=== PATIENT | male | born 1970 | race Caucasian/White ===

== ENCOUNTER 2025-02-07 08:10 | Observation (INO) | payer BC, OTHER, SELFPAY ==
[2025-02-07] VITALS (38 sets, daily range): BP systolic 147–241; BP diastolic 84–136; PULSE 67–117; RESP 9–28; TEMP 36.1–36.6; O2SAT 91–96; BMI 38.6; BMI 42.0
--- NOTE | 2025-02-07 08:17 | DI.CT.S_ITS ---
PROCEDURE: CT STROKE INDICATIONS: Positive BE-FAST, Stroke symptoms TECHNIQUE: Noncontrast 4.5 mm thick angled axial sections acquired from the foramen magnum to the vertex, with coronal reformats. For radiation dose reduction, the following was used: automated exposure control, adjustment of mA and/or kV according to patient size. COMPARISON: None. FINDINGS: Image quality: Diagnostic. CSF spaces: Basal cisterns are patent. No extra-axial fluid collections. Ventricles are normal in size and shape. Brain: No midline shift. No intracranial mass effect or hemorrhage. Perez-white matter interface is normal. Skull and face: Calvarium and visualized facial bones are intact, without suspicious lesions. Sinuses: Visualized sinuses and mastoids are clear. IMPRESSION: No acute intracranial pathology. Findings discussed with Dr. Duran at 8:37 a.m. On 02/07/2025. This study fulfills neurological imaging criteria for inclusion or exclusion of acute stroke therapies based on available published neurological imaging guidelines. Dictated by: Iker Max M.D. on 02/07/2025 at 8:36 Approved by: Iker Max M.D. on 02/07/2025 at 8:37
--- NOTE | 2025-02-07 08:17 | DI.CT.S_ITS ---
PROCEDURE: CT ANGIO HEAD AND NECK INDICATIONS: r/o stroke TECHNIQUE: After the administration of intravenous contrast, 1 mm thick sections acquired from the aortic arch through the [place]. 3-dimensional hldydtv-cbwcbxcjt-lfjewrnoxn (MIP) and/or volume rendering reformats were acquired of the central intracranial vasculature and neck separately. For radiation dose reduction, the following was used: automated exposure control, adjustment of mA and/or kV according to patient size. COMPARISON: None. FINDINGS: Image quality: Diagnostic. HEAD ANGIOGRAPHY Anterior circulation: ICAs: Normal and symmetric ACAs: Normal and symmetric MCAs: Normal and symmetric AComm: No aneurysm Venous sinuses: patent Posterior circulation: Dominance: Equal Vertebral arteries: No stenosis or occlusion. No aneurysm. Basilar artery: Unremarkable PComms: No aneurysm port captain: Unremarkable NECK ANGIOGRAPHY Aortic arch and subclavian arteries: Normal flow, no aneurysm. CCAs: No stenosis, occlusion, or aneurysm. ICA origins (by NASCET criteria): No hemodynamically significant narrowing. ICAs: No stenosis, occlusion or aneurysm. ECAs: Origins are patent. Vertebral arteries: Unremarkable Soft tissues: No significant mass, aneurysm, or lymphadenopathy Lung apices: No pneumothorax Bones: No acute or suspicious abnormality. IMPRESSION: No significant intracranial arterial abnormality is seen. No significant abnormality is seen within the arteries of the neck. Any quantitative measurements of stenosis were performed using NASCET criteria. Dictated by: Iker Max M.D. on 02/07/2025 at 8:46 Approved by: Iker Max M.D. on 02/07/2025 at 8:50
--- NOTE | 2025-02-07 08:17 | DI.RAD.S_ITS ---
PROCEDURE: XR CHEST 1V INDICATIONS: Possible stroke TECHNIQUE: One view of the chest was acquired. COMPARISON: None. FINDINGS: Surgical changes and devices: None. Lungs and pleura: Lungs are clear. No pleural effusions or pneumothorax. Mediastinum: Mediastinal contours appear normal. Heart size is normal. Bones and chest wall: No suspicious bony lesions. Overlying soft tissues appear unremarkable. IMPRESSION: No acute cardiopulmonary abnormality is seen. Dictated by: Iker Max M.D. on 02/07/2025 at 8:45 Approved by: Iker Max M.D. on 02/07/2025 at 8:46
[2025-02-07 08:33] LABS: Add Manual Diff / Slide Review NO; Basophils Absolute Auto 100 /uL (0-100); Basophils Percent Auto 0.9 % (0-2); Eosinophils Absolute Auto 100 /uL (0-450); Eosinophils Percent Auto 1.1 % (2-4); Hematocrit 45.9 % (41-53); Hemoglobin 16.2 g/dL (13.5-17.5); Lymphocytes Absolute Auto 3100 /uL (1100-4500); Lymphocytes Percent Auto 31.5 % (25-40); Mean Corpuscular HGB Conc 35.2 % (30-36); Mean Corpuscular Hemoglobin 31.5 PG (26-34); Mean Corpuscular Volume 89.4 fL (80-100); Monocytes Absolute Auto 800 /uL (0-900); Monocytes Percent Auto 8.3 % (3-14); Neutrophils Absolute Auto 5700 /uL (1500-7000); Neutrophils Percent Auto 58.2 % (50-75); Platelet Count 273 X10^3/uL (150-400); Red Blood Cell Count 5.13 X10^6/uL (4.5-5.9); Red Cell Distribution Width 12.8 % (11.6-14.8); White Blood Cell Count 9.8 X10^3/uL (4.5-11.0)
[2025-02-07 08:38] LABS: INR 0.9 (0.9-1.3); Prothrombin Time 10.3 SECONDS (9.4-12.5)
[2025-02-07 08:41] LABS: PTT Partial Thromboplastin Tim 32 SECONDS (25.1-36.5)
--- NOTE | 2025-02-07 08:42 | ED.NEUROSD ---
HPI - Neuro Symptoms/Deficit General Chief Complaint: Neuro Symptoms/Deficit Stated Complaint: Numbness on left side of body Time Seen by Provider: 02/07/25 08:41 Source: patient and family Mode of arrival: Ambulatory Limitations: no limitations History of Present Illness HPI Narrative: [age] male with no reported medical issues presents with complaint of left-sided numbness tingling of the face, arm and leg started having sensations last night at dinner in the left hand woke up at 3:00 a.m. and felt the entire left side of his body was numb and tingling. Last known normal described as 1999 last night. Patient states it did progressive his arm last night he feels like there sort of lidocaine in his cheek arm and leg. He states he has a normal movements. He denies headache, denies any speech changes, denies any vision changes. Denies any weakness or difficulty with movement. Denies any chest pain or shortness of breath. No nausea or vomiting. No other GI or urinary symptoms denies any issues with bowel movements or urination. States he was not had similar symptoms in the past. Has not seen primary care for at least 6 or 7 years, does not take any daily medications or have any known medical issues. Denies prior surgeries. Denies any drug allergies. No tobacco, states he will have have 6 alcoholic drinks about 4-5 times weekly. States he was never had withdrawal symptoms. Denies any recreational drugs. Does not currently have a primary care physician. On Anticoagulants: No Related Data Allergies Allergy/AdvReac Type Severity Reaction Status Date / Time No Known Drug Allergies Allergy Verified 02/07/25 10:05 Review of Systems Review of Systems ROS Unobtainable: All systems reviewed & are unremarkable except as noted in HPI and below Hematologic/Lymphatic On Anticoagulants: No Patient History Social History Smoking Status: Former smoker Smoking Status: Former smoker Exam Narrative Exam Narrative: GEN: Obese male, alert and oriented x 3, patient appears to be in mild distress. HEENT: Atraumatic, pupils are equal round reactive to light, extraocular movements are intact, nares are clear, TMs are clear with no fluid, there is no conjunctival pallor. Throat is clear without any exudates, erythema, tonsillar enlargement or uvular deviation, slight mild left facial droop although patient's at bedside state that appears to be his normal HEART: Regular rate and rhythm without murmur, clicks, rubs. No carotid bruits, pulses are equal in upper and lower extremities LUNGS:Lungs clear to auscultation, no wheezes, rales, crackles, chest moves symmetrically ABD:bowel sounds normal, soft, non-tender, no guarding, rebound, rigidity, no masses noted, no hepatosplenomegaly :No CVA tenderness MSCL: Non-tender, no muscle atrophy, muscles strength 5/5 upper and lower extremities, full range of motion, normal gait NEURO:CN 2-12 intact, sensation decreased to light touch on the left face arm and leg, finger nose finger test normal, heel garcia test normal. Initial Vital Signs Initial Vital Signs: Vital Signs Temperature 97.6 F 02/07/25 08:18 Pulse Rate 116 H 02/07/25 08:18 Respiratory Rate 20 02/07/25 08:18 Blood Pressure 220/136 H 02/07/25 08:18 Pulse Oximetry 96 02/07/25 08:18 Oxygen Delivery Method Room Air 02/07/25 08:18 Scores NIH Stroke Scale Level of Conciousness: Alert, keenly responsive Ask month/age: Answers both questions correctly. Open/close eyes, close hand: Performs both tasks correctly Best gaze horizontal: Normal Visual darden: No visual loss Facial palsy: Minor paralysis, flattened nasolabial fold, asymmetry on smiling Left arm drift: No drift for full 10 sec Right arm drift: No drift for full 10 sec Left leg drift: No drift for full 5 sec Right leg drift: No drift for full 5 sec Limb ataxia: Absent Sensory on face/arms/legs: Mild to moderate sensory loss, can tell touch Best language: No aphasia, normal Dysarthria: Normal Extinction or inattention: No abnormality Total NIH Stroke scale score: 2 Course Orders Ordered: ED Orders 02/07/25 08:15 Complete Blood Count AUTO DIFF Stat Comprehensive Metabolic Panel Stat PTT Partial Thromboplastin Tung Stat Prothrombin Time INR Stat Troponin & CK Cardiac Panel Stat 02/07/25 08:[address] angio head and neck Stat XR chest 1V Stat Urine Drug Screen, Rapid Stat EKG-12 Lead Stat Labetalol HCl (Labetalol 20 Mg/4 Ml Syringe) 10 mg IV Q10M PRN PRN Reason: Systolic blood pressure greater than 200 Last Admin: 02/07/25 10:05 Dose: 10 mg Ondansetron HCl (Ondansetron 4 Mg/2 Ml Inj) 4 mg IV NOW PRN PRN Reason: Nausea And Vomiting Discontinued Medications Aspirin (Aspirin 81 Mg Chew Tab) 324 mg PO NOW ONE Stop: 02/07/25 09:02 Last Admin: 02/07/25 09:07 Dose: 324 mg Labetalol HCl (Labetalol 20 Mg/4 Ml Syringe) 10 mg IV NOW ONE Stop: 02/07/25 09:02 Last Admin: 02/07/25 09:06 Dose: 10 mg Ondansetron HCl (Ondansetron 4 Mg Odt) 4 mg PO NOW PRN PRN Reason: Nausea And Vomiting Vital Signs Vital signs: Vital Signs - 8 hr 02/07/25 08:18 02/07/25 08:19 02/07/25 08:42 Temperature 97.6 F Pulse Rate 116 H 117 H Respiratory Rate 20 19 Blood Pressure 220/136 H Pulse Oximetry 96 96 95 Oxygen Delivery Method Room Air 02/07/25 08:43 02/07/25 08:43 02/07/25 08:50 Temperature Pulse Rate 104 H 103 H Respiratory Rate 22 24 Blood Pressure 234/120 H Pulse Oximetry 95 95 Oxygen Delivery Method 02/07/25 08:50 02/07/25 09:00 02/07/25 09:03 Temperature Pulse Rate 109 H 104 H Respiratory Rate 28 H 24 Blood Pressure 241/112 H Pulse Oximetry 95 92 Oxygen Delivery Method 02/07/25 09:03 02/07/25 09:06 02/07/25 09:12 Temperature Pulse Rate 102 H 90 Respiratory Rate 28 H Blood Pressure 201/116 H 201/116 H Pulse Oximetry 91 Oxygen Delivery Method 02/07/25 09:12 02/07/25 09:15 02/07/25 09:15 Temperature Pulse Rate 81 Respiratory Rate 20 Blood Pressure 196/106 H 191/110 H Pulse Oximetry 96 Oxygen Delivery Method MDM - Neuro Symptoms/Deficit Lab Data 02/07/25 08:15 02/07/25 08:15 Labs: Lab Results 02/07/25 Range/Units 08:15 WBC 9.8 (4.5-11.0) X10^3/uL RBC 5.13 (4.5-5.9) X10^6/uL Hgb 16.2 (13.5-17.5) g/dL Hct 45.9 (41-53) % MCV 89.4 (80-100) fL MCH 31.5 (26-34) PG MCHC 35.2 (30-36) % RDW 12.8 (11.6-14.8) % Plt Count 273 (150-400) X10^3/uL Neut % (Auto) 58.2 (50-75) % Lymph % (Auto) 31.5 (25-40) % [place] % (Auto) 8.3 (3-14) % Eos % (Auto) 1.1 L (2-4) % Baso % (Auto) 0.9 (0-2) % Neut # (Auto) 5700 (0075-5554) /uL Lymph # (Auto) 3100 (6884-8270) /uL [place] # (Auto) 800 (0-900) /uL Eos # (Auto) 100 (0-450) /uL Baso # (Auto) 100 (0-100) /uL PT 10.3 (9.4-12.5) SECONDS INR 0.9 (0.9-1.3) APTT 32 (25.1-36.5) SECONDS Sodium 137 (137-145) mmol/L Potassium 4.2 (3.4-5.1) mmol/L Chloride 104 (98-107) mmol/L Carbon Dioxide 23 (22-32) mmol/L BUN 19 (9-20) mg/dL Creatinine 1.00 (0.66-1.25) mg/dL Estimated GFR > 60 (>60) mL/min BUN/Creatinine Ratio 19.0 (6-22) Glucose 144 H (70-99) mg/dL Calcium 9.5 (8.4-10.2) mg/dL Total Bilirubin 0.9 (0.2-1.3) mg/dL AST 52 (17-59) IU/L ALT 66 H (<50) IU/L Alkaline Phosphatase 55 (38-126) U/L Total Creatine Kinase 243 H (55-170) U/L Troponin I < 0.012 (0.01-0.034) ng/mL Total Protein 7.7 (6.3-8.2) g/dL Albumin 4.7 (3.5-5.0) g/dL Globulin 3.0 (1.7-4.1) g/dL Albumin/Globulin Ratio 1.6 (1.0-2.8) Point of Care Testing Glucose POC 137 ECG Data Attestation: I personally reviewed and interpreted this ECG as follows: Prior ECG tracings: not available for review Interpretation: Sinus rhythm rate of 96 ND 148 QRS of 92 QTC 449, no acute ST elevation depression noted. No priors for comparison. MDM Narrative Medical decision making narrative: Labs show normal white count hemoglobin and platelets, coags are negative, electrolytes, BUN creatinine are appropriate glucose has been 44 ALT 66, AST alk-phos her normal, total CK is 243. Troponin is less than 0.012 EKG shows sinus rhythm no acute ST changes no priors for comparison. Non-con head CT stroke shows no acute intracranial pathology Chest x-ray shows no acute change CTA head and neck shows no significant intracranial abnormality or significant abnormality the arteries in the neck. Patient was quite hypertensive was given labetalol she was quite hypertensive even on rechecked. Patient also received aspirin 324 mg chewable. 55-year-old male no reported medical history but has not seen a physician in 6 or 7 years arrives quite hypertensive with left-sided paresthesias of the face, upper extremity and lower extremity NIH is 1-2. Patient does have a bit of droop at the nasolabial fold but patient and family states that is normal otherwise his NIH is 1 for sensation changes. Reviewed findings with the patient and family. Hospitalist paged at 9:13 a.m. Spoke with hospitalist Dr. Hampton at who accepts for admission for hypertensive emergency. Rechecked blood pressure after labetalol is in the 190s over 1 teens we will continue to monitor and give medications as needed. Stroke Core Measures Exclusion Criteria TPA in CVA: Symptom Onset >3 or 4.5 Hours Discharge Plan Departure Patient Disposition: Admitted as Observation Clinical Impression: Hypertensive emergency Admit Date/Time: 02/07/25 09:22 Admit Provider: Charles Hampton
[2025-02-07 08:44] LABS: Alanine Aminotransferase 66 IU/L (<50); Albumin 4.7 g/dL (3.5-5.0); Albumin Globulin Ratio 1.6 (1.0-2.8); Alkaline Phosphatase 55 U/L (38-126); Aspartate Aminotransferase 52 IU/L (17-59); Bilirubin Total 0.9 mg/dL (0.2-1.3); Blood Urea Nitrogen 19 mg/dL (9-20); Calcium 9.5 mg/dL (8.4-10.2); Carbon Dioxide 23 mmol/L (22-32); Chloride 104 mmol/L (98-107); Creatine Kinase 243 U/L (55-170); Estimated Glomerular Filt Rate > 60 mL/min (>60); Glucose 144 mg/dL (70-99); HEMOLYSIS < 15 (0-50); Potassium 4.2 mmol/L (3.4-5.1); Sodium 137 mmol/L (137-145); Total Protein 7.7 g/dL (6.3-8.2)
--- NOTE | 2025-02-07 08:49 | EKG_ITS ---
[address] [address] [address] [address] Test Date: 2025-02-07 Pat Name: Hudson Cash Department: Room: Gender: Male Motion Designer: MEME : 1970 Requested By: Order Number: [id number] Reading MD: Alberto Cifuentes MD Measurements Intervals [place] Rate: 96 P: 31 VT: 148 QRS: 70 QRSD: 92 T: 14 QT: 356 QTc: 449 Interpretive Statements Normal sinus rhythm Electronically Signed On 02-07-2025 8:53:32 PDT by Alberto Cifuentes MD
--- NOTE | 2025-02-07 08:51 | PC.NURSE ---
Pt hypertensive. Dr Duran notified.
[2025-02-07 08:55] LABS: Troponin I < 0.012 ng/mL (0.01-0.034)
[2025-02-07] MEDS: LABETALOL 20 MG/4 ML SYRINGE 10 MG IV ×3 (09:06→10:05)
[2025-02-07] MEDS: ASPIRIN 81 MG CHEW TAB 324 MG PO (09:07)
--- NOTE | 2025-02-07 09:22 | PC.NURSE ---
Pt arrived to dept with left-sided facial, arm & leg numbness. States that he started to feel some left hand and arm numbness after dinner at about 2000 yesterday. Woke up this morning at 0300 with numbness in left side of face, arm & leg. Unequal sensation on left side of face and left side of face slightly drooped. Pt hypertensive with bp 200s/100s. A&Ox4.
--- NOTE | 2025-02-07 09:44 | PC.NURSE ---
Pt states that left side is still numb and tingling.
--- NOTE | 2025-02-07 11:05 | DI.ECHO.S_ITS ---
[facility] +---------+ [facility] : : [address] : : [place] : : [id number] : : Phone: [phone] Echocardiogram Report + + :Name: MEGAN BLANCO Study Date: 02/07/2025 Height: 72 in : :Hospital ReadingLocation: Weight: 285 lb : : Gender: Male BSA: 2.5 m2 : :: 1970 Age: 55 yrs BP: 171/99 mmHg: :Reason For Study: STROKE, CHEST PAIN : :Ordering Physician: NORA, : :WILLAM Performed By: Shreya Buchanan : :Referring: WILLAM MELENDEZ : + + Interpretation Summary Normal biventricular size and systolic function. LVEF is 55 to 60% Normal atrial sizes. No more than mild valvular pathology is noted No [id number] shunt noted Other findings as below. No previous echo images are available for comparison. Procedure: A two-dimensional transthoracic echocardiogram with color flow and Doppler was performed. The study quality was technically difficult. There is no prior echocardiogram noted for this patient. A saline contrast injection was performed to assess for cardiac shunting. The patient was in sinus rhythm with heart rates between 72-85 bpm during the exam. Left Ventricle: The left ventricle is normal in size. Left ventricular wall thickness is mildly increased. The ejection fraction is estimated to be 55- 60%. Left ventricular systolic function is normal. Left ventricular wall motion is normal. Right Ventricle: The right ventricle is normal in size, thickness and function. The right ventricular systolic function is normal. Atria: The left atrial size is normal. The right atrium is normal in size. There is no Doppler evidence for an interatrial shunt. Injection of contrast documented no interatrial shunt. Mitral Valve: The mitral valve leaflets appear to open well. There is mild mitral regurgitation. Aortic Valve: The aortic valve is trileaflet. The aortic valve opens well. There is no aortic valve stenosis. No aortic regurgitation is present. Tricuspid Valve: The tricuspid valve leaflets are thin and pliable. No tricuspid regurgitation. Pulmonary artery pressures cannot be estimated because of the lack of a measurable TR jet velocity. Pulmonic Valve: The pulmonic valve is not well visualized. There is no pulmonic valvular regurgitation. Great Vessels: The aortic root is normal size. The dimensions of the ascending aorta are normal. The inferior vena cava was not visualized. Pericardium/ Pleura There is no pericardial effusion. There is no pleural effusion. MMode/2D Measurements & Calculations LVIDd: 5.2 cm LVOT diam: 2.3 cm LVIDs: 3.3 cm Ao root diam: 3.7 cm FS: 36.8 % asc Aorta Diam: 3.8 cm IVSd: 1.4 cm Ao Arch Diam (Prox Trans): 3.9 cm LVPWd: 1.0 cm LV breaux. diameter/BSA (cm/m^2): 2.1 LV sys. diameter/BSA (cm/m^2): 1.3 LA A2 area: 24.7 cm2 RA long axis: 6.2 cm LA A4 area: 25.0 cm2 RA area: 18.5 cm2 LA length (vol): 6.4 cm RA vol: 47.3 ml LA vol: 81.9 ml RA : 19.1 ml/m2 LA vol index: 33.1 ml/m2 RVD1 (basal): 4.4 cm TAPSE: 2.2 cm Doppler Measurements & Calculations Ao V2 max: 140.6 cm/sec LVOT Max Arley: 108.6 cm/sec Ao V2 mean: 96.2 cm/sec LV V1 max P.7 mmHg Ao max P.9 mmHg LV V1 VTI: 22.9 cm Ao mean P.2 mmHg ESTEFANIA(I,D): 3.7 cm2 Ao V2 VTI: 26.0 cm ESTEFANIA(V,D): 3.3 cm2 sev ratio: 0.88 ESTEFANIA indexed to BSA (cm^2/m^2): 1.5 MV E max arley: 62.6 cm/sec PA V2 max: 109.5 cm/sec MV A max arley: 87.1 cm/sec PA V2 mean: 67.3 cm/sec MV E/A: 0.72 PA mean P.2 mmHg Med Peak E' Arley: 7.2 cm/sec PA pr(Accel): 4.5 mmHg E/E' med: 8.7 Lat Peak E' Arley: 10.5 cm/sec E/E' lat: 6.0 E/e' average: 7.3 MV dec time: 0.26 sec SVLVOT): 96.3 ml Reading Physician:04:14 PM
[2025-02-07] MEDS: chlordiazePOXIDE 25 MG CAPSULE PO ×2 (14:43→22:03)
--- NOTE | 2025-02-07 14:51 | PM.HP.1 ---
History of Present Illness History of Present Illness Date Patient Seen: 02/07/25 Chief complaint: Numbness on left side of body Narrative: Chief complaint: Stroke-like symptoms with numbness of left face upper extremity torso and left lower extremity History of present illness: [age] male with no reported medical issues presents with complaint of left-sided numbness tingling of the face, arm and leg started having sensations last night at dinner in the left hand woke up at 3:00 a.m. and felt the entire left side of his body was numb and tingling. Last known normal described as 1999 last night. Patient states it did progressive his arm last night he feels like there sort of lidocaine in his cheek arm and leg. He states he has a normal movements. He denies headache, denies any speech changes, denies any vision changes. Denies any weakness or difficulty with movement. Denies any chest pain or shortness of breath. No nausea or vomiting. No other GI or urinary symptoms denies any issues with bowel movements or urination. States he was not had similar symptoms in the past. Has not seen primary care for at least 6 or 7 years, does not take any daily medications or have any known medical issues. Denies prior surgeries. Denies any drug allergies. No tobacco, states he will have have 6 alcoholic drinks about 4-5 times weekly. States he was never had withdrawal symptoms. Denies any recreational drugs. Does not currently have a primary care physician. Emergency room course: Initial blood pressure 241/112 given intravenous labetalol reduced to 196/106 CBC and CMP is unremarkable CK is 243 troponin below reference measurable EKG sinus tachycardia no ST segments or T changes Patient excluded for tPA based on hypertension and onset of symptoms starting last night CTA of head and neck unremarkable CT of the head: No acute intracranial pathology Review of systems: No weight loss weight gain fevers chills No sinus congestion difficulty swallowing No chest pains palpitations No cough shortness for breath No nausea vomiting diarrhea constipation No urinary symptoms Physical exam: Well-developed male no acute distress ambulatory live and oriented HEENT unremarkable Neck no carotid bruits Heart rate and rhythm regular no murmurs Lungs clear to auscultation Abdomen nontender Extremities no edema Neurologic alert and oriented Cranial nerves intact 5/5 strength upper and lower extremities Normal Subjective impaired sensation of left face head upper extremity torso and lower extremity Assessment and plan: Stroke-like symptoms high suspicion of right-sided basal ganglia infarct with deficits left side sensory only -permissive hypertension goal blood pressure 180 -aspirin high-dose statin -Librium 25 mg t.i.d. prophylaxis for withdrawal -MRI of the brain -pharmacologic DVT prophylaxis contraindicated due to severe hypertension Full Code Blue: Greater than 55 minutes of time were required in management this patient 50% of the time was in the presence of the patient [facility] Social History Smoking Status: Former smoker Meds Home Medications and Allergies Home Medications Medication Instructions Recorded Confirmed Type No Known Home Medications 02/07/25 02/07/25 History Allergies Allergy/AdvReac Type Severity Reaction Status Date / Time No Known Drug Allergies Allergy Verified 02/07/25 10:05 Exam Vital Signs (past 8 hours): - 02/07/25 08:18 02/07/25 08:19 02/07/25 08:42 Temperature 97.6 F Pulse Rate 116 H 117 H Respiratory Rate 20 19 Blood Pressure 220/136 H Pulse Oximetry 96 96 95 Oxygen Delivery Method Room Air 02/07/25 08:43 02/07/25 08:43 02/07/25 08:50 Temperature Pulse Rate 104 H 103 H Respiratory Rate 22 24 Blood Pressure 234/120 H Pulse Oximetry 95 95 Oxygen Delivery Method 02/07/25 08:50 02/07/25 09:00 02/07/25 09:03 Temperature Pulse Rate 109 H 104 H Respiratory Rate 28 H 24 Blood Pressure 241/112 H Pulse Oximetry 95 92 Oxygen Delivery Method 02/07/25 09:03 02/07/25 09:06 02/07/25 09:12 Temperature Pulse Rate 102 H 90 Respiratory Rate 28 H Blood Pressure 201/116 H 201/116 H Pulse Oximetry 91 Oxygen Delivery Method 02/07/25 09:12 02/07/25 09:15 02/07/25 09:15 Temperature Pulse Rate 81 Respiratory Rate 20 Blood Pressure 196/106 H 191/110 H Pulse Oximetry 96 Oxygen Delivery Method 02/07/25 09:30 02/07/25 09:30 02/07/25 09:31 Temperature Pulse Rate 88 86 Respiratory Rate 26 H 17 Blood Pressure Pulse Oximetry 93 96 Oxygen Delivery Method Room Air 02/07/25 09:31 02/07/25 09:39 02/07/25 09:43 Temperature Pulse Rate 81 Respiratory Rate 17 Blood Pressure 221/121 H 221/121 H Pulse Oximetry 94 Oxygen Delivery Method 02/07/25 09:43 02/07/25 09:45 02/07/25 09:46 Temperature Pulse Rate Respiratory Rate Blood Pressure 187/106 H 221/121 H 191/114 H Pulse Oximetry Oxygen Delivery Method 02/07/25 09:46 02/07/25 10:00 02/07/25 10:03 Temperature Pulse Rate 79 79 80 Respiratory Rate 18 13 15 Blood Pressure Pulse Oximetry 95 92 92 Oxygen Delivery Method 02/07/25 10:03 02/07/25 10:05 02/07/25 10:10 Temperature Pulse Rate Respiratory Rate Blood Pressure 181/104 H 181/104 H 181/104 H Pulse Oximetry Oxygen Delivery Method 02/07/25 10:15 02/07/25 10:15 02/07/25 10:30 Temperature Pulse Rate 76 79 Respiratory Rate 10 L 9 L Blood Pressure 189/109 H 176/107 H Pulse Oximetry 94 93 Oxygen Delivery Method 02/07/25 10:30 02/07/25 10:38 02/07/25 10:46 Temperature Pulse Rate 79 Respiratory Rate 14 Blood Pressure 176/107 H 176/107 H Pulse Oximetry 95 Oxygen Delivery Method 02/07/25 10:46 02/07/25 11:00 02/07/25 11:02 Temperature Pulse Rate 77 79 Respiratory Rate 10 L 20 Blood Pressure 183/93 H 173/100 H Pulse Oximetry 94 96 Oxygen Delivery Method 02/07/25 12:02 02/07/25 13:00 02/07/25 14:00 Temperature Pulse Rate 82 79 79 Respiratory Rate 18 22 20 Blood Pressure 173/100 H 171/99 H 162/101 H Pulse Oximetry 96 94 95 Oxygen Delivery Method Oxygen Delivery Method Room Air Objective Labs 02/07/25 08:15 02/07/25 08:15 Labs: Laboratory Results - last 24 hr 02/07/25 08:15 WBC 9.8 RBC 5.13 Hgb 16.2 Hct 45.9 MCV 89.4 MCH 31.5 MCHC 35.2 RDW 12.8 Plt Count 273 Neut % (Auto) 58.2 Lymph % (Auto) 31.5 [place] % (Auto) 8.3 Eos % (Auto) 1.1 L Baso % (Auto) 0.9 Neut # (Auto) 5700 Lymph # (Auto) 3100 [place] # (Auto) 800 Eos # (Auto) 100 Baso # (Auto) 100 PT 10.3 INR 0.9 APTT 32 Sodium 137 Potassium 4.2 Chloride 104 Carbon Dioxide 23 BUN 19 Creatinine 1.00 Estimated GFR > 60 BUN/Creatinine Ratio 19.0 Glucose 144 H Calcium 9.5 Total Bilirubin 0.9 AST 52 ALT 66 H Alkaline Phosphatase 55 Total Creatine Kinase 243 H Troponin I < 0.012 Total Protein 7.7 Albumin 4.7 Globulin 3.0 Albumin/Globulin Ratio 1.6 Assessment & Plan Time-Based Coding :: [TOTAL MINUTES] spent with patient and on the chart (including review of chart, obtaining history, exam, reviewing outside data, placing orders, documenting exam and treatment plan, and counseling patient) on [DATE]. Quality MIPS - Admit I confirm the patient?s Advance Care Plan is present, Code status is documented, Surrogate decision maker is in patient?s record [If Yes, STOP here]: Yes MIPS - Meds 'Current medications' to include all prescriptions, [id number] products, herbals, cannabis/cannabidiol products, and vitamin/mineral/dietary (nutritional) supplements. I have utilized all available resources to obtain, update, or review the patient?s current medications. [If Yes, STOP here]: Yes
[2025-02-07 18:19] LABS: Appearance Urine UA CLEAR; Bilirubin Urine UA NEGATIVE (NEGATIVE); Color Urine UA YELLOW; Glucose Urine UA NEGATIVE (Negative); Ketones Urine UA NEGATIVE (NEGATIVE); Leukocyte Esterase Urine UA NEGATIVE (NEGATIVE); Nitrite Urine UA NEGATIVE (Negative); Occult Blood Urine UA NEGATIVE (Negative); Protein Urine UA NEGATIVE (Negative)
[2025-02-07 18:21] LABS: UR Morphine/Opiate cutoff 300 Negative (Negative); Ur Creatinine Normal (Normal); Ur Specific Gravity Normal (Normal); Urine Amphetamines Negative (Negative); Urine Barbiturates Negative (Negative); Urine Benzodiazepines Negative (Negative); Urine Cocaine Negative (Negative); Urine MDMA Negative (Negative); Urine Methadone Negative (Negative); Urine Methamphetamines Negative (Negative); Urine Oxycodone Negative (Negative); Urine Phencyclidine Negative (Negative); Urine Tetrahydrocannabinol Negative (Negative); Urine Tricyclic Antidepressant Negative (Negative); Urine pH Normal (Normal)
[2025-02-07 18:31] LABS: Bacteria Urine None Seen; Culture Indicated Urine Cult Not Indicated; RBC Urine None Seen (0-5/HPF); Squamous Epithelial Cell Urine None Seen (0-5/HPF); Urine Volume 10mL (spun); WBC Urine None Seen (0-5/HPF)
[2025-02-07 21:29] LABS: MRSA (Nasal) PCR NOT DETECTED (Not Detect)
[2025-02-07] MEDS: SODIUM CHLORIDE 0.9% FLUSH 10 ML IV (22:03)
[2025-02-08] VITALS (17 sets, daily range): BP systolic 158–196; BP diastolic 86–126; PULSE 60–90; RESP 12–24; O2SAT 93–98
--- NOTE | 2025-02-08 06:05 | PC.NURSE ---
Filter Tip Inspector Note-Patient is A/Ox4. NIH=1 done Q4h. Continues to have mild nunbness to LUE and LLE, states numbness to Lt side of face has decreased. BP remains elevated 180s/90-105. Denies chest pain, dyspnea, headache, or nausea. He does have apnea sometimes >5-6 seconds desatting to 80%, place 2L NC while asleep.
[2025-02-08] MEDS: chlordiazePOXIDE 25 MG CAPSULE PO (06:13)
[2025-02-08] MEDS: SODIUM CHLORIDE 0.9% FLUSH 10 ML IV ×2 (09:00→21:46)
--- NOTE | 2025-02-08 10:52 | DI.MRI.S_ITS ---
PROCEDURE: MR HEAD/BRAIN WO CON INDICATIONS: cva TECHNIQUE: Noncontrast axial T1 spin echo, axial T2 fast spin echo, sagittal and axial FLAIR, coronal T2 fast spin echo, axial gradient echo, axial diffusion and ADC through the brain. COMPARISON: [facility], CT, CT STROKE, 02/07/2025, 8:28. [facility], CT, CT ANGIO HEAD AND NECK, 02/07/2025, 8:28. FINDINGS: Image quality: Excellent. CSF Spaces: Basal cisterns are patent. No extra-axial fluid collections. Ventricles are normal in size and shape. Brain: There is an 8 mm focus of abnormal diffusion-weighted signal within the right thalamus. Associated dark signal can be seen on the ADC map at this site. Mild associated developing T2 weighted signal can be seen. No intracranial masses or hemorrhage. Perez/white matter interface is normal. Brainstem appears normal. No chronic ischemic insults. Normal intravascular flow voids are present. Skull and face: Calvarium has normal marrow signal. Orbits appear normal. Sinuses: Sinuses and mastoids are clear. IMPRESSION: Subacute infarction seen involving the right thalamus. Dictated by: Tyree Belle M.D. on 02/08/2025 at 11:37 Approved by: Tyree Belle M.D. on 02/08/2025 at 11:39
[2025-02-08] MEDS: AMLODIPINE 5 MG TABLET PO (13:33)
[2025-02-08 14:21] LABS: Add Manual Diff / Slide Review NO; Basophils Absolute Auto 100 /uL (0-100); Basophils Percent Auto 0.9 % (0-2); Eosinophils Absolute Auto 100 /uL (0-450); Eosinophils Percent Auto 1.7 % (2-4); Hematocrit 42.6 % (41-53); Hemoglobin 14.9 g/dL (13.5-17.5); Lymphocytes Absolute Auto 1800 /uL (1100-4500); Lymphocytes Percent Auto 22.8 % (25-40); Mean Corpuscular Hemoglobin 31.4 PG (26-34); Mean Corpuscular Volume 89.5 fL (80-100); Monocytes Absolute Auto 500 /uL (0-900); Monocytes Percent Auto 6.7 % (3-14); Neutrophils Absolute Auto 5500 /uL (1500-7000); Neutrophils Percent Auto 67.9 % (50-75); Platelet Count 229 X10^3/uL (150-400); Red Blood Cell Count 4.76 X10^6/uL (4.5-5.9); Red Cell Distribution Width 13.1 % (11.6-14.8); White Blood Cell Count 8.1 X10^3/uL (4.5-11.0)
--- NOTE | 2025-02-08 15:33 | CM.DANOTE ---
DCP Assessment Note: Pt is a 55yo male, resident of [place], is admitted for hypertensive emergency. Pt lives in a house with his children and ex-. Patient does not currently have a PCP and agreed to establishing with a [facility] Provider and insurance is [employer] and [facility] [employer]. Reviewed chart and discussed with multidisciplinary team pt's medical status and initial discharge needs. DCP met w/patient at bedside; introduced self and role. Patient was found in bed, alert and oriented, cooperative with assessment. Pt confirmed living situation and good support in family. Pt expressed preference in discharge home as soon as possible. Pt has no history with home health or SNF, confirmed he does not feel referral is needed at this time. Plan: Anticipating dc home on 02/08 or upon medical clearance, will need PCP establishment and follow up. CM team will follow closely for coordination of discharge plans. ZAID Copeland Discharge Planning/Care Management CM Discharge Assessment Start: 02/07/25 09:30 Freq: Status: Active Protocol: Document 02/08/25 15:26 MW (Rec: 02/08/25 15:33 MW [id number]) Discharge Planning Assessment Assigned [employer] Packer JUAN Wagner DPOA/Assigned Designee Name Dahlia, Ex- Contact Information [phone] Advance Directives? No History Provided By Patient,Medical Record Has Patient been admitted in last 30 No days? Prior Living Arrangements House Household Members spouse Type of transporation used prior to Drives own vehicle admit Independent with ADL's Yes Is patient alert and oriented? Yes Caregiver for Another No Discharge Plan Home Whiteboard Updated in Patient Room with Yes name and ext. # of [employer] Inspector [employer] Packer Review Status In Process Please Provide Date Initial DC 02/08/25 Assessment Was Performed Next Review Type Continued Stay Review
[2025-02-08] MEDS: cloNIDine 0.1 MG TABLET PO ×2 (16:10→21:43)
--- NOTE | 2025-02-08 16:43 | P.PN_ITS ---
Subjective Subjective Date Patient Seen: 02/08/25 Interval history: Chief complaint: Stroke-like symptoms with numbness of left face upper extremity torso and left lower extremity History of present illness: [age] male with no reported medical issues presents with complaint of left-sided numbness tingling of the face, arm and leg started having sensations last night at dinner in the left hand woke up at 3:00 a.m. and felt the entire left side of his body was numb and tingling. Last known normal described as 1999 last night. Patient states it did progressive his arm last night he feels like there sort of lidocaine in his cheek arm and leg. He states he has a normal movements. He denies headache, denies any speech changes, denies any vision changes. Denies any weakness or difficulty with movement. Denies any chest pain or shortness of breath. No nausea or vomiting. No other GI or urinary symptoms denies any issues with bowel movements or urination. States he was not had similar symptoms in the past. Has not seen primary care for at least 6 or 7 years, does not take any daily medications or have any known medical issues. Denies prior surgeries. Denies any drug allergies. No tobacco, states he will have have 6 alcoholic drinks about 4-5 times weekly. States he was never had withdrawal symptoms. Denies any recreational drugs. Does not currently have a primary care physician. Emergency room course: Initial blood pressure 241/112 given intravenous labetalol reduced to 196/106 CBC and CMP is unremarkable CK is 243 troponin below reference measurable EKG sinus tachycardia no ST segments or T changes Patient excluded for tPA based on hypertension and onset of symptoms starting last night CTA of head and neck unremarkable CT of the head: No acute intracranial pathology Hospital course: 02/08:. No further symptoms still as the paresthesia of the left side of his body head and extremities MRI demonstrates a right thalamic subacute infarct: Review of systems: No weight loss weight gain fevers chills No sinus congestion difficulty swallowing No chest pains palpitations No cough shortness for breath No nausea vomiting diarrhea constipation No urinary symptoms Physical exam: Well-developed male no acute distress ambulatory live and oriented HEENT unremarkable Neck no carotid bruits Heart rate and rhythm regular no murmurs Lungs clear to auscultation Abdomen nontender Extremities no edema Neurologic alert and oriented Cranial nerves intact 5/5 strength upper and lower extremities Normal Subjective impaired sensation of left face head upper extremity torso and lower extremity Assessment and plan: Subacute thalamic right-sided basal ganglia infarct with deficits left side sensory only -permissive hypertension goal blood pressure 150 -aspirin high-dose statin -Librium 25 mg t.i.d. prophylaxis for withdrawal -pharmacologic DVT prophylaxis contraindicated due to severe hypertension Full Code Blue: Greater than 35 minutes of time were required in management this patient 50% of the time was in the presence of the patient Exam Vital Signs (past 8 hours): - 02/08/25 09:00 02/08/25 10:44 02/08/25 11:41 Pulse Rate 81 79 85 Respiratory Rate 16 16 16 Blood Pressure 188/110 H 183/95 H 159/101 H Pulse Oximetry 95 95 95 Oxygen Flow Rate 0 0 02/08/25 12:36 02/08/25 13:49 02/08/25 14:00 Pulse Rate 86 80 86 Respiratory Rate 16 17 24 Blood Pressure 196/104 H 193/126 H 178/102 H Pulse Oximetry 97 93 94 Oxygen Flow Rate 0 0 02/08/25 15:26 02/08/25 16:00 Pulse Rate 81 79 Respiratory Rate 20 17 Blood Pressure 191/96 H 176/106 H Pulse Oximetry 95 96 Oxygen Flow Rate 0 Oxygen Delivery Method Room Air Oxygen Flow Rate 0 Objective Labs 02/08/25 14:10 02/07/25 08:15 Labs: Laboratory Results - last 24 hr 02/07/25 02/07/25 02/07/25 16:14 16:14 20:00 WBC RBC Hgb Hct MCV MCH MCHC RDW Plt Count Neut % (Auto) Lymph % (Auto) [place] % (Auto) Eos % (Auto) Baso % (Auto) Neut # (Auto) Lymph # (Auto) [place] # (Auto) Eos # (Auto) Baso # (Auto) Urine Color Yellow Urine Appearance Clear Urine pH 6.0 Normal Ur Specific [place] 1.020 Urine Protein Negative Urine Glucose (UA) Negative Urine Ketones Negative Urine Occult Blood Negative Urine Nitrate Negative Urine Bilirubin Negative Urine Urobilinogen 1.0 Ur Leukocyte Esterase Negative Urine RBC None seen Urine WBC None seen Ur Squamous Epith Cells None seen Urine Bacteria None seen Ur Culture Indicated? Cult not indicated Vol Urine Centrifuged 10ml (spun) Nasal Screen MRSA (PCR) Not detected U Opiates 300ng/mL cut Negative Ur Oxycodone Screen Negative Urine Methadone Screen Negative Ur Barbiturates Screen Negative U Tricyclic Antidepress Negative Ur Phencyclidine Scrn Negative Ur Amphetamines Screen Negative U Methamphetamines Scrn Negative Ur MDMA Scrn (Ecstasy) Negative U Benzodiazepines Scrn Negative Urine Cocaine Screen Negative U Marijuana (THC) Screen Negative Urine Specific [place] Normal Ur Creatinine Normal 02/08/25 14:10 WBC 8.1 RBC 4.76 Hgb 14.9 Hct 42.6 MCV 89.5 MCH 31.4 MCHC 35.0 RDW 13.1 Plt Count 229 Neut % (Auto) 67.9 Lymph % (Auto) 22.8 L [place] % (Auto) 6.7 Eos % (Auto) 1.7 L Baso % (Auto) 0.9 Neut # (Auto) 5500 Lymph # (Auto) 1800 [place] # (Auto) 500 Eos # (Auto) 100 Baso # (Auto) 100 Urine Color Urine Appearance Urine pH Ur Specific [place] Urine Protein Urine Glucose (UA) Urine Ketones Urine Occult Blood Urine Nitrate Urine Bilirubin Urine Urobilinogen Ur Leukocyte Esterase Urine RBC Urine WBC Ur Squamous Epith Cells Urine Bacteria Ur Culture Indicated? Vol Urine Centrifuged Nasal Screen MRSA (PCR) U Opiates 300ng/mL cut Ur Oxycodone Screen Urine Methadone Screen Ur Barbiturates Screen U Tricyclic Antidepress Ur Phencyclidine Scrn Ur Amphetamines Screen U Methamphetamines Scrn Ur MDMA Scrn (Ecstasy) U Benzodiazepines Scrn Urine Cocaine Screen U Marijuana (THC) Screen Urine Specific [place] Ur Creatinine PFSH Social History household members: spouse Smoking Status: Former smoker Assessment & Plan Time-Based Coding :: [TOTAL MINUTES] spent with patient and on the chart (including review of chart, obtaining history, exam, reviewing outside data, placing orders, documenting exam and treatment plan, and counseling patient) on [DATE].
[2025-02-08] MEDS: ATORVASTATIN 20 MG TABLET 80 MG PO (21:46)
[2025-02-09] VITALS: BP 166/93; PULSE 84; RESP 18; O2SAT 93
[2025-02-09 04:00] VITALS: BP 169/96; PULSE 68; RESP 15; O2SAT 95
[2025-02-09 08:04] LABS: Add Manual Diff / Slide Review NO; Basophils Absolute Auto 100 /uL (0-100); Basophils Percent Auto 1.4 % (0-2); Eosinophils Absolute Auto 200 /uL (0-450); Eosinophils Percent Auto 2.4 % (2-4); Hematocrit 44.2 % (41-53); Hemoglobin 15.4 g/dL (13.5-17.5); Lymphocytes Absolute Auto 1900 /uL (1100-4500); Lymphocytes Percent Auto 28.3 % (25-40); Mean Corpuscular HGB Conc 34.8 % (30-36); Mean Corpuscular Hemoglobin 31.4 PG (26-34); Mean Corpuscular Volume 90.1 fL (80-100); Monocytes Absolute Auto 600 /uL (0-900); Monocytes Percent Auto 9.3 % (3-14); Neutrophils Absolute Auto 4000 /uL (1500-7000); Neutrophils Percent Auto 58.6 % (50-75); Platelet Count 204 X10^3/uL (150-400); Red Blood Cell Count 4.91 X10^6/uL (4.5-5.9); Red Cell Distribution Width 12.9 % (11.6-14.8); White Blood Cell Count 6.9 X10^3/uL (4.5-11.0)
[2025-02-09 08:42] VITALS: BP 166/95; PULSE 78
[2025-02-09] MEDS: ASPIRIN EC 81 MG TABLET PO (08:42)
[2025-02-09] MEDS: AMLODIPINE 5 MG TABLET PO ×2 (08:42→09:44)
[2025-02-09] MEDS: SODIUM CHLORIDE 0.9% FLUSH 10 ML IV (08:42)
[2025-02-09] MEDS: cloNIDine 0.1 MG TABLET PO (08:42)
--- NOTE | 2025-02-09 09:09 | PM.DS.1 ---
History of Present Illness History of Present Illness Date Patient Seen: 02/09/25 Chief complaint: Numbness on left side of body Narrative: Chief complaint: Stroke-like symptoms with numbness of left face upper extremity torso and left lower extremity History of present illness: [age] male with no reported medical issues presents with complaint of left-sided numbness tingling of the face, arm and leg started having sensations last night at dinner in the left hand woke up at 3:00 a.m. and felt the entire left side of his body was numb and tingling. Last known normal described as 1999 last night. Patient states it did progressive his arm last night he feels like there sort of lidocaine in his cheek arm and leg. He states he has a normal movements. He denies headache, denies any speech changes, denies any vision changes. Denies any weakness or difficulty with movement. Denies any chest pain or shortness of breath. No nausea or vomiting. No other GI or urinary symptoms denies any issues with bowel movements or urination. States he was not had similar symptoms in the past. Has not seen primary care for at least 6 or 7 years, does not take any daily medications or have any known medical issues. Denies prior surgeries. Denies any drug allergies. No tobacco, states he will have have 6 alcoholic drinks about 4-5 times weekly. States he was never had withdrawal symptoms. Denies any recreational drugs. Does not currently have a primary care physician. Emergency room course: Initial blood pressure 241/112 given intravenous labetalol reduced to 196/106 CBC and CMP is unremarkable CK is 243 troponin below reference measurable EKG sinus tachycardia no ST segments or T changes Patient excluded for tPA based on hypertension and onset of symptoms starting last night CTA of head and neck unremarkable CT of the head: No acute intracranial pathology 02/08:. No further symptoms still as the paresthesia of the left side of his body head and extremities MRI demonstrates a right thalamic subacute infarct: 02/09: Paresthesia is kneeling on just a small area on his left upper lip now Blood pressure control improved medications adjusted patient discharged home referred for primary care hopefully Dr. Cifuentes Review of systems: No weight loss weight gain fevers chills No sinus congestion difficulty swallowing No chest pains palpitations No cough shortness for breath No nausea vomiting diarrhea constipation No urinary symptoms Physical exam: Well-developed male no acute distress ambulatory live and oriented HEENT unremarkable Neck no carotid bruits Heart rate and rhythm regular no murmurs Lungs clear to auscultation Abdomen nontender Extremities no edema Neurologic alert and oriented Cranial nerves intact 5/5 strength upper and lower extremities Normal Subjective impaired sensation of left face head upper extremity torso and lower extremity Assessment and plan: Subacute thalamic right-sided basal ganglia infarct with deficits left side sensory only -permissive hypertension goal blood pressure 150 -aspirin high-dose statin -Librium 25 mg t.i.d. prophylaxis for withdrawal -pharmacologic DVT prophylaxis contraindicated due to severe hypertension Full Code Blue: Greater than 35 minutes of time were required in management this patient 50% of the time was in the presence of the patient Discharge Providers Provider Date of admission: 02/07/25 09:22 Discharge Date: 02/09/25 Discharge provider: Charles Hampton MD Exam Vital Signs (past 8 hours): - 02/09/25 04:00 02/09/25 08:42 Pulse Rate 68 78 Respiratory Rate 15 Blood Pressure 169/96 H 166/95 H Pulse Oximetry 95 Oxygen Delivery Method Room Air Oxygen Flow Rate 1 Objective Labs 02/09/25 07:47 02/07/25 08:15 Labs: Laboratory Results - last 24 hr 02/08/25 02/09/25 14:10 07:47 WBC 8.1 6.9 RBC 4.76 4.91 Hgb 14.9 15.4 Hct 42.6 44.2 MCV 89.5 90.1 MCH 31.4 31.4 MCHC 35.0 34.8 RDW 13.1 12.9 Plt Count 229 204 Neut % (Auto) 67.9 58.6 Lymph % (Auto) 22.8 L 28.3 [place] % (Auto) 6.7 9.3 Eos % (Auto) 1.7 L 2.4 Baso % (Auto) 0.9 1.4 Neut # (Auto) 5500 4000 Lymph # (Auto) 1800 1900 [place] # (Auto) 500 600 Eos # (Auto) 100 200 Baso # (Auto) 100 100 PFSH Social History household members: spouse Smoking Status: Former smoker Discharge Plan Discharge orders & Medications Discharge Orders: Discharge (Order); Ordered 02/09/25 Ordered By: Charles Snedeker Prescriptions: New clonidine HCl 0.1 mg Tablet 0.1 mg PO BID Qty: 60 2RF atorvastatin 20 mg Tablet 80 mg PO BEDTIME Qty: 30 2RF aspirin 81 mg Tablet,Delayed Release (Dr/Ec) 81 mg PO DAILY Qty: 100 0RF amlodipine 10 mg tablet 10 mg PO DAILY Qty: 30 2RF Follow up/Referrals: Alberto Cifuentes MD [Physician] - (to establish) Visit Report/Discharge Packet Stand Alone Forms: Patient Portal/API, Stroke Signs & Symptoms Discharge Data Attending Provider: Charles Hampton Admit Date/Time: 02/07/25 09:22
--- NOTE | 2025-02-09 10:18 | PC.NURSE ---
Discharge: Pt agreeable to discharge. Instructions provider on stroke signs and symptoms, pt education on pt specific symptoms (such as unilateral vague numbness prior to the admission), Stroke signs/symptoms magnet provided to pt. Pt education provided regarding hypertension and new medications, fall prevention and safety. Pt education provided on follow up for establishment of primary care, pt instructed the office will call but if not by MondayFebruary 18, to call to establish care. IV discontinued, telemetry removed. Pt dressed. Pt wheeled via w/c to private vehicle at approximately 10:15.
--- NOTE | 2025-02-09 14:24 | CM.DPNOTE ---
DC Note Discharge home today with family. Messaged the RN transitions of care group asking that patient be established with a provider that is currently accepting new patients. Patient agreeable to this plan. SEAN
== END 2025-02-09 10:16 | disposition home or self-care (01) ==
LOC: ED 09:17 → AC 09:22 → ICU 11:46
PROVIDERS: Admitting Provider Internal Medicine; Emergency Provider Emergency Medicine; Referring Provider Emergency Medicine; Visit Provider Internal Medicine
DX: I63.89 Other cerebral infarction (principal); I16.1 Hypertensive emergency; R20.0 Anesthesia of skin; Z87.891 Personal history of nicotine dependence; E66.9 Obesity, unspecified; R29.702 NIHSS score 2
CPT/HCPCS: 36415; 70450; 70496; 70498; 70551; 71045; 80053; 80305; 81001; 82550; 82962; 84484; 85025; 85610; 85730; 87797; 93005; 93306; 96374; 96376; 99285; G0378; Q9967

== ENCOUNTER → 2025-02-27 15:12 | Outpatient (CLI) | payer BC, OTHER, SELFPAY ==
[2025-02-07 09:30] VITALS: BMI 42.0
== END ==
PROVIDERS: PCP Family Medicine; Referring Provider Family Medicine; Visit Provider Family Medicine
DX: I10 Essential (primary) hypertension (principal); I63.9 Cerebral infarction, unspecified; Z86.73 Personal history of transient ischemic attack (TIA), and cerebral infarction without residual deficits
CPT/HCPCS: 93242

== ENCOUNTER 2025-03-03 06:20 | Emergency (ER) | payer BC, OTHER, SELFPAY ==
[2025-02-07 09:30] VITALS: BMI 42.0
[2025-03-03] VITALS (17 sets, daily range): BP systolic 147–199; BP diastolic 81–122; PULSE 79–119; RESP 7–21; TEMP 36.6; O2SAT 94–97; BMI 27.8
--- NOTE | 2025-03-03 06:27 | DI.RAD.S_ITS ---
PROCEDURE: XR CHEST 1V INDICATIONS: chest pain TECHNIQUE: One view of the chest was acquired. COMPARISON: [facility], CR, XR CHEST 1V, 02/07/2025, 8:27. FINDINGS: Surgical changes and devices: None. Lungs and pleura: Lungs are clear. No pleural effusions or pneumothorax. Mediastinum: Mediastinal contours appear normal. Heart size is normal. Bones and chest wall: No suspicious bony lesions. Overlying soft tissues appear unremarkable. IMPRESSION: No acute cardiopulmonary pathology. Dictated by: Jose F Barger M.D. on 03/03/2025 at 9:00 Approved by: Jose F Barger M.D. on 03/03/2025 at 9:00
--- NOTE | 2025-03-03 06:30 | DI.CT.S_ITS ---
PROCEDURE: CT HEAD/BRAIN WO CON INDICATIONS: Hypertension, hand tingling, strokelike symptoms TECHNIQUE: Noncontrast 4.5 mm thick angled axial sections acquired from the foramen magnum to the vertex, with coronal and sagittal reformats. For radiation dose reduction, the following was used: automated exposure control, adjustment of mA and/or kV according to patient size. COMPARISON: [facility], CT, CT STROKE, 02/07/2025, 8:28. FINDINGS: Image quality: Diagnostic. CSF spaces: Basal cisterns are patent. No extra-axial fluid collections. Ventricles are normal in size and shape. Brain: No midline shift. No intracranial mass effect or hemorrhage. Perez- white matter interface is normal. Skull and face: Calvarium and visualized facial bones are intact, without suspicious lesions. Sinuses: Visualized sinuses and mastoids are clear. IMPRESSION: No acute intracranial pathology. Findings are concordant with preliminary interpretation provided by [facility]. Dictated by: Junaid Corley M.D. on 03/03/2025 at 8:47 Approved by: Junaid Corley M.D. on 03/03/2025 at 8:48
--- NOTE | 2025-03-03 06:31 | DI.CT.S_ITS ---
PROCEDURE: CT ANGIO HEAD AND NECK INDICATIONS: Hand tingling, hypertension, strokelike symptoms TECHNIQUE: After the administration of intravenous contrast, 1 mm thick sections acquired from the aortic arch through the [place] [facility] [place]. 3-dimensional icyssir-jeznkrwpk-vdzievmzmi (MIP) and/or volume rendering reformats were acquired of the central intracranial vasculature and neck separately. For radiation dose reduction, the following was used: automated exposure control, adjustment of mA and/or kV according to patient size. COMPARISON: [facility], CT, CT ANGIO HEAD AND NECK, 02/07/2025, 8:28. FINDINGS: Image quality: Diagnostic. Cerebral CT Angiogram: Internal carotid arteries: No acute findings. Intracranial ICA are patent with no significant stenosis. No occlusion. No aneurysm. Anterior cerebral arteries: Unremarkable. No significant stenosis. No occlusion. No aneurysm. Middle cerebral arteries: Unremarkable. No significant stenosis. No occlusion. No aneurysm. Posterior cerebral arteries: Unremarkable. No significant stenosis. No occlusion. No aneurysm. Basilar artery: Unremarkable. No significant stenosis. No occlusion. No aneurysm. Vertebral arteries: Unremarkable as visualized. Dural venous sinuses: Unremarkable given phase of enhancement. Other: Arterial phase appearance of the brain parenchyma is unremarkable. Neck CT Angiogram: Internal carotid arteries: Tortuous and retropharyngeal courses. Unremarkable. No significant stenosis. No dissection or occlusion. Common carotid arteries: Unremarkable. No significant stenosis. No dissection or occlusion. External carotid arteries: Unremarkable. No occlusion. Vertebral arteries: Unremarkable. No significant stenosis. No dissection or occlusion. Aortic Arch and Mediastinum: Partially visualized aortic arch unremarkable without evidence of aneurysm. Origins of the great vessels unremarkable. Other: Arterial phase soft tissues of the neck and chest are unremarkable. IMPRESSION: No significant intracranial arterial abnormality is seen. No significant abnormality is seen within the arteries of the neck. Findings are concordant with preliminary interpretation provided by [facility]. Any quantitative measurements of stenosis were performed using NASCET criteria. Dictated by: Junaid Corley M.D. on 03/03/2025 at 8:48 Approved by: Junaid Corley M.D. on 03/03/2025 at 8:52
--- NOTE | 2025-03-03 06:32 | EKG_ITS ---
[address] [address] Test Date: 2025-03-03 Pat Name: Hudson Cash Department: Room: Gender: Male Patient Observation Assistant: : 1970 Requested By: Order Number: [id number] Reading MD: Josias Schilling Measurements Intervals [place] Rate: 110 P: 9 WA: 140 QRS: 60 QRSD: 88 T: 7 QT: 332 QTc: 449 Interpretive Statements Sinus tachycardia Electronically Signed On 03-07-2025 0:01:57 PDT by Josias Schilling
--- NOTE | 2025-03-03 06:35 | ED.GENADULT ---
HPI - General Adult General Chief complaint: Hypertension Stated complaint: HBP, Recent stroke 3 wks ago Time Seen by Provider: 03/03/25 06:26 Related Data Previous Rx's ?Medication ?Instructions ?Recorded amlodipine 10 mg tablet 10 mg PO DAILY #30 tabs 02/09/25 aspirin 81 mg tablet,delayed 81 mg PO DAILY #100 tabs 02/09/25 release atorvastatin 20 mg tablet 80 mg (4 x 20 mg) PO BEDTIME #30 02/09/25 tabs clonidine HCl 0.1 mg tablet 0.1 mg PO BID #60 tabs 02/09/25 Allergies Allergy/AdvReac Type Severity Reaction Status Date / Time No Known Drug Allergies Allergy Verified 03/03/25 06:32 Patient History Medical History (Updated 02/14/25 @ 13:37 by Minna Murdock DO) Hypertensive emergency Social History household members: spouse Course Orders Ordered: ED Orders 03/03/25 06:26 EKG-12 Lead Stat 03/03/25 06:27 XR chest 1V Stat EKG-12 Lead Stat 03/03/25 06:30 CT head/brain wo con Stat Complete Blood Count AUTO DIFF Stat Comprehensive Metabolic Panel Stat Lipase Stat Troponin & CK Cardiac Panel Stat 03/03/25 06:31 CT angio head and neck Stat Sodium Chloride (Normal Saline 0.9%) 1,000 mls @ 150 mls/hr IV CONT GREYSON Medical Decision Making Lab Data 03/03/25 06:30 03/03/25 06:30 Discharge Plan Departure Prescriptions: No Action clonidine HCl 0.1 mg Tablet 0.1 mg PO BID Qty: 60 2RF atorvastatin 20 mg Tablet 80 mg PO BEDTIME Qty: 30 2RF aspirin 81 mg Tablet,Delayed Release (Dr/Ec) 81 mg PO DAILY Qty: 100 0RF amlodipine 10 mg tablet 10 mg PO DAILY Qty: 30 2RF Referrals: Minna Murdock DO [Primary Care Provider, Family Practice]
--- NOTE | 2025-03-03 06:37 | PC.NURSE ---
Pt to imaging via ED stretcher with director of diagnostic imaging
[2025-03-03 06:38] LABS: Add Manual Diff / Slide Review NO; Basophils Absolute Auto 100 /uL (0-100); Basophils Percent Auto 0.8 % (0-2); Eosinophils Absolute Auto 100 /uL (0-450); Eosinophils Percent Auto 0.9 % (2-4); Hematocrit 45.5 % (41-53); Hemoglobin 15.5 g/dL (13.5-17.5); Lymphocytes Absolute Auto 2100 /uL (1100-4500); Lymphocytes Percent Auto 22.3 % (25-40); Mean Corpuscular HGB Conc 34.1 % (30-36); Mean Corpuscular Hemoglobin 30.5 PG (26-34); Mean Corpuscular Volume 89.5 fL (80-100); Monocytes Absolute Auto 600 /uL (0-900); Monocytes Percent Auto 6.2 % (3-14); Neutrophils Absolute Auto 6500 /uL (1500-7000); Neutrophils Percent Auto 69.8 % (50-75); Platelet Count 324 X10^3/uL (150-400); Red Blood Cell Count 5.08 X10^6/uL (4.5-5.9); Red Cell Distribution Width 12.5 % (11.6-14.8); White Blood Cell Count 9.3 X10^3/uL (4.5-11.0)
[2025-03-03] MEDS: SODIUM CHLORIDE 0.9% 1,000 ML 150 ML IV (06:48)
[2025-03-03] MEDS: LABETALOL 20 MG/4 ML SYRINGE 10 MG IV (06:48)
[2025-03-03 07:00] LABS: Alanine Aminotransferase 66 IU/L (<50); Albumin 4.9 g/dL (3.5-5.0); Albumin Globulin Ratio 1.5 (1.0-2.8); Alkaline Phosphatase 76 U/L (38-126); Aspartate Aminotransferase 46 IU/L (17-59); BUN Creatinine Ratio 22.1 (6-22); Bilirubin Total 0.6 mg/dL (0.2-1.3); Blood Urea Nitrogen 17 mg/dL (9-20); Calcium 9.4 mg/dL (8.4-10.2); Carbon Dioxide 23 mmol/L (22-32); Chloride 104 mmol/L (98-107); Creatine Kinase 188 U/L (55-170); Estimated Glomerular Filt Rate > 60 mL/min (>60); Globulin 3.2 g/dL (1.7-4.1); Glucose 146 mg/dL (70-99); HEMOLYSIS < 15 (0-50); Lipase 104 U/L (23-300); Potassium 4.1 mmol/L (3.4-5.1); Sodium 138 mmol/L (137-145); Total Protein 8.1 g/dL (6.3-8.2)
--- NOTE | 2025-03-03 07:02 | ED.GENADULT ---
HPI - General Adult <Hunter Maza MD - Last Filed: 03/03/25 18:06> General Chief complaint: Hypertension Stated complaint: HBP, Recent stroke 3 wks ago Time Seen by Provider: 03/03/25 06:26 Source: patient Mode of arrival: Ambulatory History of Present Illness HPI narrative: 55-year-old male recently admitted here 02/07/2025 with left-sided numbness sensory stroke with markedly elevated blood pressures, CT head and CT angiogram head and neck vessels done, MRI brain showed subacute infarction right thalamus, discharged 2 days later on 02/09/2025, new medications on discharge of baby aspirin, atorvastatin, clonidine, amlodipine. His numbness improved, at the time of discharge he had residual left fingertip and left thumb tip numbness only. No motor defects. He was at his baseline until he woke up 0230 this morning with left-sided arm numbness, was worried that he was having another stroke, got up, was pacing, did not take any specific medications until later in the morning when he took his amlodipine and clonidine, elevated blood pressures noted at home, had improvement of his left arm numbness back to recent baseline fingertip numbness only. No motor deficits. No visual problems. No trouble swallowing. No trouble speaking. No altered gait. Related Data Previous Rx's ?Medication ?Instructions ?Recorded amlodipine 10 mg tablet 10 mg PO DAILY #30 tabs 02/09/25 aspirin 81 mg tablet,delayed 81 mg PO DAILY #100 tabs 02/09/25 release atorvastatin 20 mg tablet 80 mg (4 x 20 mg) PO BEDTIME #30 02/09/25 tabs clonidine HCl 0.1 mg tablet 0.1 mg PO BID #60 tabs 02/09/25 Allergies Allergy/AdvReac Type Severity Reaction Status Date / Time No Known Drug Allergies Allergy Verified 03/03/25 06:32 Review of Systems <Dylan Espinoza MD - Last Filed: 03/03/25 12:10> Review of Systems Narrative: GENERAL: Negative chills, fatigue, malaise, fever, sweats. HEENT: Negative sinus pain, ear pain, sore throat RESPIRATORY: Negative dyspnea, cough CARDIOVASCULAR: Negative chest pain, palpitations GASTROINTESTINAL: Negative vomiting, nausea, abdominal pain : Negative dysuria, frequency, hematuria MUSCULOSKELETAL: Negative muscle or bony pain SKIN: Negative rash, skin lesions NEUROLOGIC: Negative weakness, positive numbness ROS Unobtainable: All systems reviewed & are unremarkable except as noted in HPI and below Patient History <Hunter Maza MD - Last Filed: 03/03/25 18:06> Medical History (Updated 03/03/25 @ 09:04 by Dylan Espinoza MD) Hypertensive emergency Social History household members: spouse Smoking Status: Never smoker Smoking Status: Never smoker Exam <Hunter Maza MD - Last Filed: 03/03/25 18:06> Narrative Exam Narrative: GENERAL: Well-developed patient, in mild distress. HEAD: Atraumatic. Normocephalic. EYES: Pupils equal round and reactive. Extraocular motions intact. No scleral icterus. No injection or drainage. ENT: Nose without bleeding, purulent drainage. Throat without erythema, tonsillar hypertrophy or exudate. Airway patent. NECK: Trachea midline. Non tender CARDIOVASCULAR: Regular rate and rhythm without murmurs, gallops, or rubs. RESPIRATORY: Clear to auscultation. Breath sounds equal bilaterally. No wheezes, rales, or rhonchi. GASTROINTESTINAL: Abdomen soft, non-tender, nondistended. EXTREMITIES: No edema or joint tenderness. BACK: Nontender without deformity or crepitance. No flank tenderness. NEURO: AOx3. Cranial nerves intact as tested. Motor 5/5 bilateral upper extremities, 5/5 bilateral lower extremities. Intact sensation to light touch face arm leg both sides equal and symmetrical. Kwnjci-le-cpwn testing normal right side and left side. Gait not tested but reportedly has been walking well. SKIN: No rash or erythema of visible areas Initial Vital Signs Initial Vital Signs: Vital Signs Temperature 97.8 F 03/03/25 06:32 Pulse Rate 119 H 03/03/25 06:32 Respiratory Rate 19 03/03/25 06:32 Blood Pressure 199/122 H 03/03/25 06:32 Pulse Oximetry 96 03/03/25 06:32 Oxygen Delivery Method Room Air 03/03/25 06:32 <Dylan Espinoza MD - Last Filed: 03/03/25 12:10> Initial Vital Signs Initial Vital Signs: Vital Signs Temperature 97.8 F 03/03/25 06:32 Pulse Rate 119 H 03/03/25 06:32 Respiratory Rate 19 03/03/25 06:32 Blood Pressure 199/122 H 03/03/25 06:32 Pulse Oximetry 96 03/03/25 06:32 Oxygen Delivery Method Room Air 03/03/25 06:32 Course <Hunter Maza MD - Last Filed: 03/03/25 18:06> Orders Ordered: Discontinued Medications Sodium Chloride (Normal Saline 0.9%) 1,000 mls @ 150 mls/hr IV CONT GREYSON Last Infusion: 03/03/25 09:25 Dose: Infused Documented By: Admin: 03/03/25 06:48 Dose: 150 mls/hr Documented By: MASON Labetalol HCl (Labetalol 20 Mg/4 Ml Syringe) 10 mg IV NOW ONE Stop: 03/03/25 06:37 Last Admin: 03/03/25 06:48 Dose: 10 mg Documented By: MASON Vital Signs Vital signs: Vital Signs - 8 hr 03/03/25 06:32 03/03/25 06:34 03/03/25 07:00 Temperature 97.8 F Pulse Rate 119 H 85 Respiratory Rate 19 Blood Pressure 199/122 H 183/106 H Pulse Oximetry 96 Oxygen Delivery Method Room Air 03/03/25 07:00 03/03/25 07:05 03/03/25 07:05 Temperature Pulse Rate 83 Respiratory Rate Blood Pressure 169/104 H 158/98 H Pulse Oximetry 95 Oxygen Delivery Method 03/03/25 07:10 03/03/25 07:10 03/03/25 07:15 Temperature Pulse Rate 81 Respiratory Rate Blood Pressure 159/98 H 147/93 H Pulse Oximetry 94 Oxygen Delivery Method 03/03/25 07:15 03/03/25 07:20 03/03/25 07:20 Temperature Pulse Rate 83 81 Respiratory Rate 20 12 Blood Pressure 155/90 H Pulse Oximetry 96 95 Oxygen Delivery Method 03/03/25 07:25 03/03/25 07:25 03/03/25 07:30 Temperature Pulse Rate 83 83 Respiratory Rate 14 20 Blood Pressure 156/94 H Pulse Oximetry 95 97 Oxygen Delivery Method 03/03/25 07:30 03/03/25 07:35 03/03/25 07:35 Temperature Pulse Rate 84 Respiratory Rate 21 Blood Pressure 168/92 H 164/98 H Pulse Oximetry 96 Oxygen Delivery Method 03/03/25 07:40 03/03/25 07:40 03/03/25 07:45 Temperature Pulse Rate 82 81 Respiratory Rate 8 L Blood Pressure 176/96 H Pulse Oximetry 95 96 Oxygen Delivery Method 03/03/25 07:45 03/03/25 07:50 03/03/25 07:50 Temperature Pulse Rate 82 Respiratory Rate 7 L Blood Pressure 161/88 H 151/83 H Pulse Oximetry 96 Oxygen Delivery Method 03/03/25 07:55 03/03/25 07:55 03/03/25 08:00 Temperature Pulse Rate 81 Respiratory Rate 11 L Blood Pressure 165/87 H 152/81 H Pulse Oximetry 97 Oxygen Delivery Method 03/03/25 08:00 03/03/25 09:00 03/03/25 09:02 Temperature Pulse Rate 79 90 Respiratory Rate 8 L Blood Pressure 172/104 H Pulse Oximetry 96 Oxygen Delivery Method 03/03/25 09:02 Temperature Pulse Rate 86 Respiratory Rate Blood Pressure Pulse Oximetry 96 Oxygen Delivery Method <Dylan Espinoza MD - Last Filed: 03/03/25 12:10> Orders Ordered: Discontinued Medications Sodium Chloride (Normal Saline 0.9%) 1,000 mls @ 150 mls/hr IV CONT GREYSON Last Infusion: 03/03/25 09:25 Dose: Infused Documented By: Admin: 03/03/25 06:48 Dose: 150 mls/hr Documented By: MASON Labetalol HCl (Labetalol 20 Mg/4 Ml Syringe) 10 mg IV NOW ONE Stop: 03/03/25 06:37 Last Admin: 03/03/25 06:48 Dose: 10 mg Documented By: MASON Vital Signs Vital signs: Vital Signs - 8 hr 03/03/25 06:32 03/03/25 06:34 03/03/25 07:00 Temperature 97.8 F Pulse Rate 119 H 85 Respiratory Rate 19 Blood Pressure 199/122 H 183/106 H Pulse Oximetry 96 Oxygen Delivery Method Room Air 03/03/25 07:00 03/03/25 07:05 03/03/25 07:05 Temperature Pulse Rate 83 Respiratory Rate Blood Pressure 169/104 H 158/98 H Pulse Oximetry 95 Oxygen Delivery Method 03/03/25 07:10 03/03/25 07:10 03/03/25 07:15 Temperature Pulse Rate 81 Respiratory Rate Blood Pressure 159/98 H 147/93 H Pulse Oximetry 94 Oxygen Delivery Method 03/03/25 07:15 03/03/25 07:20 03/03/25 07:20 Temperature Pulse Rate 83 81 Respiratory Rate 20 12 Blood Pressure 155/90 H Pulse Oximetry 96 95 Oxygen Delivery Method 03/03/25 07:25 03/03/25 07:25 03/03/25 07:30 Temperature Pulse Rate 83 83 Respiratory Rate 14 20 Blood Pressure 156/94 H Pulse Oximetry 95 97 Oxygen Delivery Method 03/03/25 07:30 03/03/25 07:35 03/03/25 07:35 Temperature Pulse Rate 84 Respiratory Rate 21 Blood Pressure 168/92 H 164/98 H Pulse Oximetry 96 Oxygen Delivery Method 03/03/25 07:40 03/03/25 07:40 03/03/25 07:45 Temperature Pulse Rate 82 81 Respiratory Rate 8 L Blood Pressure 176/96 H Pulse Oximetry 95 96 Oxygen Delivery Method 03/03/25 07:45 03/03/25 07:50 03/03/25 07:50 Temperature Pulse Rate 82 Respiratory Rate 7 L Blood Pressure 161/88 H 151/83 H Pulse Oximetry 96 Oxygen Delivery Method 03/03/25 07:55 03/03/25 07:55 03/03/25 08:00 Temperature Pulse Rate 81 Respiratory Rate 11 L Blood Pressure 165/87 H 152/81 H Pulse Oximetry 97 Oxygen Delivery Method 03/03/25 08:00 03/03/25 09:00 03/03/25 09:02 Temperature Pulse Rate 79 90 Respiratory Rate 8 L Blood Pressure 172/104 H Pulse Oximetry 96 Oxygen Delivery Method 03/03/25 09:02 Temperature Pulse Rate 86 Respiratory Rate Blood Pressure Pulse Oximetry 96 Oxygen Delivery Method Medical Decision Making <Hunter Maza MD - Last Filed: 03/03/25 18:06> Lab Data 03/03/25 06:30 03/03/25 06:30 Labs: Lab Results 03/03/25 Range/Units 06:30 WBC 9.3 (4.5-11.0) X10^3/uL RBC 5.08 (4.5-5.9) X10^6/uL Hgb 15.5 (13.5-17.5) g/dL Hct 45.5 (41-53) % MCV 89.5 (80-100) fL MCH 30.5 (26-34) PG MCHC 34.1 (30-36) % RDW 12.5 (11.6-14.8) % Plt Count 324 (150-400) X10^3/uL Neut % (Auto) 69.8 (50-75) % Lymph % (Auto) 22.3 L (25-40) % Brewster % (Auto) 6.2 (3-14) % Eos % (Auto) 0.9 L (2-4) % Baso % (Auto) 0.8 (0-2) % Neut # (Auto) 6500 (6825-3733) /uL Lymph # (Auto) 2100 (8336-4317) /uL Brewster # (Auto) 600 (0-900) /uL Eos # (Auto) 100 (0-450) /uL Baso # (Auto) 100 (0-100) /uL Sodium 138 (137-145) mmol/L Potassium 4.1 (3.4-5.1) mmol/L Chloride 104 (98-107) mmol/L Carbon Dioxide 23 (22-32) mmol/L BUN 17 (9-20) mg/dL Creatinine 0.77 (0.66-1.25) mg/dL Estimated GFR > 60 (>60) mL/min BUN/Creatinine Ratio 22.1 H (6-22) Glucose 146 H (70-99) mg/dL Calcium 9.4 (8.4-10.2) mg/dL Total Bilirubin 0.6 (0.2-1.3) mg/dL AST 46 (17-59) IU/L ALT 66 H (<50) IU/L Alkaline Phosphatase 76 (38-126) U/L Total Creatine Kinase 188 H (55-170) U/L Troponin I < 0.012 (0.01-0.034) ng/mL Total Protein 8.1 (6.3-8.2) g/dL Albumin 4.9 (3.5-5.0) g/dL Globulin 3.2 (1.7-4.1) g/dL Albumin/Globulin Ratio 1.5 (1.0-2.8) Lipase 104 (23-300) U/L ECG Data Interpretation: 0632, sinus tachycardia with rate of 110. No obvious ST segment elevation or depression changes. T-wave inversion lead 3 but upright in leads 2 and F. MN 140, QRS 88, QTC 449. 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 Possible code stroke. CT head, CT angiogram head and neck vessels ordered. Labs sent. EKGs sent. EKG shows normal sinus rhythm without obvious ischemic changes. Blood pressure 200/122, heart rate 120 on monitor, IV labetalol 10 mg initial dose. Imaging studies pending. 0700, imaging studies still pending, labs still pending, patient seems to be back to his previous [id number]-[id number] left fingertip numbness baseline. Signed out to oncoming ED shift physician Dr. Espinoza. March 03, 2025 at 7:[address] Espinoza: Sign out from Dr. Maza. Symptoms have resolved. Recent stroke. Hypertensive today. Patient has been compliant with medications. Labetalol has been given. Waiting for CT results and laboratory results. CT head and CT angiogram head and neck no acute finding, MRI brain no acute finding, chest x-ray no acute finding Laboratory results: WBC 9.3 hemoglobin 15.5 BUN 17 creatinine 0.77 glucose 146 troponin less than 0.012 7:30 a.m.. Updated patient results. However MRI is ordered for comparison for recent stroke. Patient agrees. 9:00 a.m.. Updated patient results. Blood pressure 152/81 pulse 79. Exam and MRI and imaging studies blood work are reassuring. His spike in blood pressure this morning needs to be follow up with primary care. He does see Dr. Cifuentes office group. He will call their office today for careful monitoring of his blood pressure and may need to add a beta-yodit as we gave him labetalol here today. He does understand this. Return precautions reviewed. He desires discharge home. His blood pressure is at baseline now. He states his blood pressure is usually systolic 140 up to 150. He is asymptomatic this time. Last night's events he states was less severe than when he was here for stroke. He does think perhaps he may have slept on his arm wrong. Appropriate for discharge home. Exam is reassuring. Return precautions reviewed with patient. Laboratory studies imaging studies exam and vital signs are reassuring and blood pressure improved. He desires discharge home. Diagnosis hypertension, paresthesia <Dylan Espinoza MD - Last Filed: 03/03/25 12:10> Lab Data Labs: Lab Results 03/03/25 Range/Units 06:30 WBC 9.3 (4.5-11.0) X10^3/uL RBC 5.08 (4.5-5.9) X10^6/uL Hgb 15.5 (13.5-17.5) g/dL Hct 45.5 (41-53) % MCV 89.5 (80-100) fL MCH 30.5 (26-34) PG MCHC 34.1 (30-36) % RDW 12.5 (11.6-14.8) % Plt Count 324 (150-400) X10^3/uL Neut % (Auto) 69.8 (50-75) % Lymph % (Auto) 22.3 L (25-40) % Brewster % (Auto) 6.2 (3-14) % Eos % (Auto) 0.9 L (2-4) % Baso % (Auto) 0.8 (0-2) % Neut # (Auto) 6500 (3193-3515) /uL Lymph # (Auto) 2100 (1876-1543) /uL Brewster # (Auto) 600 (0-900) /uL Eos # (Auto) 100 (0-450) /uL Baso # (Auto) 100 (0-100) /uL Sodium 138 (137-145) mmol/L Potassium 4.1 (3.4-5.1) mmol/L Chloride 104 (98-107) mmol/L Carbon Dioxide 23 (22-32) mmol/L BUN 17 (9-20) mg/dL Creatinine 0.77 (0.66-1.25) mg/dL Estimated GFR > 60 (>60) mL/min BUN/Creatinine Ratio 22.1 H (6-22) Glucose 146 H (70-99) mg/dL Calcium 9.4 (8.4-10.2) mg/dL Total Bilirubin 0.6 (0.2-1.3) mg/dL AST 46 (17-59) IU/L ALT 66 H (<50) IU/L Alkaline Phosphatase 76 (38-126) U/L Total Creatine Kinase 188 H (55-170) U/L Troponin I < 0.012 (0.01-0.034) ng/mL Total Protein 8.1 (6.3-8.2) g/dL Albumin 4.9 (3.5-5.0) g/dL Globulin 3.2 (1.7-4.1) g/dL Albumin/Globulin Ratio 1.5 (1.0-2.8) Lipase 104 (23-300) U/L Imaging Data MRI brain: Radiologist's Impression: [address] [address] Magnetic Resonance Report Signed Patient: Hudson Cash MR#: [id number] : 1970 Acct:[id number] Age/Sex: 55 / M Date of Service: 03/03/25 Loc: ED Accession Number: [id number] Procedure: MR head/brain wo con Ordering Provider: Dylan Espinoza MD PROCEDURE: MR HEAD/BRAIN WO CON INDICATIONS: Left arm numbness tingling. History of stroke TECHNIQUE: Noncontrast axial T1 spin echo, axial T2 fast spin echo, sagittal and axial FLAIR, coronal T2 fast spin echo, axial gradient echo, axial diffusion and ADC through the brain. COMPARISON: [facility], , MR HEAD/BRAIN WO CON, 02/08/2025, 11:57. FINDINGS: Image quality: Excellent. CSF Spaces: Basal cisterns are patent. No extra-axial fluid collections. Ventricles are normal in size and shape. Brain: No intracranial masses or hemorrhage. Perze/white matter interface is normal. Brainstem appears normal. Diffusion-weighted images demonstrate no acute infarct. No chronic ischemic insults. Normal intravascular flow voids are present. Skull and face: Calvarium has normal marrow signal. Orbits appear normal. Sinuses: Sinuses and mastoids are clear. IMPRESSION: No acute or subacute infarct. No acute intracranial abnormalities. Dictated by: Junaid Corley M.D. on 03/03/2025 at 8:44 Approved by: Junaid Corley M.D. on 03/03/2025 at 8:46 CTA - brain/neck: Radiologist's Impression: [address] [address] [address] Scan Report Signed Patient: Hudson Cash MR#: [id number] : 1970 Acct:[id number] Age/Sex: 55 / M Date of Service: 03/03/25 Loc: ED Accession Number: [id number] Procedure: CT angio head and neck Ordering Provider: Hunter Maza MD PROCEDURE: CT ANGIO HEAD AND NECK INDICATIONS: Hand tingling, hypertension, strokelike symptoms TECHNIQUE: After the administration of intravenous contrast, 1 mm thick sections acquired from the aortic arch through the Douglas of Yanes. 3-dimensional uqcogzr-twmqysixb-xrdtredxpz (MIP) and/or volume rendering reformats were acquired of the central intracranial vasculature and neck separately. For radiation dose reduction, the following was used: automated exposure control, adjustment of mA and/or kV according to patient size. COMPARISON: [facility], CT, CT ANGIO HEAD AND NECK, 02/07/2025, 8:28. FINDINGS: Image quality: Diagnostic. Cerebral CT Angiogram: Internal carotid arteries: No acute findings. Intracranial ICA are patent with no significant stenosis. No occlusion. No aneurysm. Anterior cerebral arteries: Unremarkable. No significant stenosis. No occlusion. No aneurysm. Middle cerebral arteries: Unremarkable. No significant stenosis. No occlusion. No aneurysm. Posterior cerebral arteries: Unremarkable. No significant stenosis. No occlusion. No aneurysm. Basilar artery: Unremarkable. No significant stenosis. No occlusion. No aneurysm. Vertebral arteries: Unremarkable as visualized. Dural venous sinuses: Unremarkable given phase of enhancement. Other: Arterial phase appearance of the brain parenchyma is unremarkable. Neck CT Angiogram: Internal carotid arteries: Tortuous and retropharyngeal courses. Unremarkable. No significant stenosis. No dissection or occlusion. Common carotid arteries: Unremarkable. No significant stenosis. No dissection or occlusion. External carotid arteries: Unremarkable. No occlusion. Vertebral arteries: Unremarkable. No significant stenosis. No dissection or occlusion. Aortic Arch and Mediastinum: Partially visualized aortic arch unremarkable without evidence of aneurysm. Origins of the great vessels unremarkable. Other: Arterial phase soft tissues of the neck and chest are unremarkable. IMPRESSION: No significant intracranial arterial abnormality is seen. No significant abnormality is seen within the arteries of the neck. Findings are concordant with preliminary interpretation provided by [facility]. Any quantitative measurements of stenosis were performed using NASCET criteria. Dictated by: Junaid Corley M.D. on 03/03/2025 at 8:48 Approved by: Junaid Corley M.D. on 03/03/2025 at 8:52 CT scan - head: Radiologist's Impression: [address] [address] [address] Scan Report Signed Patient: Hudson Cash MR#: [id number] : 1970 Acct:[id number] Age/Sex: 55 / M Date of Service: 03/03/25 Loc: ED Accession Number: [id number] Procedure: CT head/brain wo con Ordering Provider: Hunter Maza MD PROCEDURE: CT HEAD/BRAIN WO CON INDICATIONS: Hypertension, hand tingling, strokelike symptoms TECHNIQUE: Noncontrast 4.5 mm thick angled axial sections acquired from the foramen magnum to the vertex, with coronal and sagittal reformats. For radiation dose reduction, the following was used: automated exposure control, adjustment of mA and/or kV according to patient size. COMPARISON: [facility], CT, CT STROKE, 02/07/2025, 8:28. FINDINGS: Image quality: Diagnostic. CSF spaces: Basal cisterns are patent. No extra-axial fluid collections. Ventricles are normal in size and shape. Brain: No midline shift. No intracranial mass effect or hemorrhage. Perez-white matter interface is normal. Skull and face: Calvarium and visualized facial bones are intact, without suspicious lesions. Sinuses: Visualized sinuses and mastoids are clear. IMPRESSION: No acute intracranial pathology. Findings are concordant with preliminary interpretation provided by [facility]. Dictated by: Junaid Corley M.D. on 03/03/2025 at 8:47 Approved by: Junaid Corley M.D. on 03/03/2025 at 8:48 Chest x-ray: Radiologist's Impression: [address] [address] XRay Report Signed Patient: Hudson Cash MR#: [id number] : 1970 Acct:[id number] Age/Sex: 55 / M Date of Service: 03/03/25 Loc: ED Accession Number: [id number] Procedure: XR chest 1V Ordering Provider: Hunter Maza MD PROCEDURE: XR CHEST 1V INDICATIONS: chest pain TECHNIQUE: One view of the chest was acquired. COMPARISON: [facility], CR, XR CHEST 1V, 02/07/2025, 8:27. FINDINGS: Surgical changes and devices: None. Lungs and pleura: Lungs are clear. No pleural effusions or pneumothorax. Mediastinum: Mediastinal contours appear normal. Heart size is normal. Bones and chest wall: No suspicious bony lesions. Overlying soft tissues appear unremarkable. IMPRESSION: No acute cardiopulmonary pathology. Dictated by: Jose F Barger M.D. on 03/03/2025 at 9:00 Approved by: Jose F Barger M.D. 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 Possible code stroke. CT head, CT angiogram head and neck vessels ordered. Labs sent. EKGs sent. EKG shows normal sinus rhythm without obvious ischemic changes. Blood pressure 200/122, heart rate 120 on monitor, IV labetalol 10 mg initial dose. Imaging studies pending. 0700, imaging studies still pending, labs still pending, patient seems to be back to his previous stroke left fingertip numbness baseline. Signed out to oncoming ED shift physician Dr. Espinoza. March 03, 2025 at 7:[address] Espinoza: Sign out from Dr. Maza. Symptoms have resolved. Recent stroke. Hypertensive today. Patient has been compliant with medications. Labetalol has been given. Waiting for CT results and laboratory results. CT head and CT angiogram head and neck no acute finding, MRI brain no acute finding, chest x-ray no acute finding Laboratory results: WBC 9.3 hemoglobin 15.5 BUN 17 creatinine 0.77 glucose 146 troponin less than 0.012 7:30 a.m.. Updated patient results. However MRI is ordered for comparison for recent stroke. Patient agrees. 9:00 a.m.. Updated patient results. Blood pressure 152/81 pulse 79. Exam and MRI and imaging studies blood work are reassuring. His spike in blood pressure this morning needs to be follow up with primary care. He does see Dr. Cifuentes office group. He will call their office today for careful monitoring of his blood pressure and may need to add a beta-yodit as we gave him labetalol here today. He does understand this. Return precautions reviewed. He desires discharge home. His blood pressure is at baseline now. He states his blood pressure is usually systolic 140 up to 150. He is asymptomatic this time. Last night's events he states was less severe than when he was here for stroke. He does think perhaps he may have slept on his arm wrong. Appropriate for discharge home. Exam is reassuring. Return precautions reviewed with patient. Laboratory studies imaging studies exam and vital signs are reassuring and blood pressure improved. He desires discharge home. Diagnosis hypertension, paresthesia Discharge Plan Departure Patient Disposition: Home Clinical Impression: Paresthesia HTN (hypertension) Qualifiers: Hypertension type: unspecified Qualified Code(s): I10 - Essential (primary) hypertension Instructions: DI for High Blood Pressure Activity Restrictions/Additional Instructions: Your exam and CT scan imaging and MRI imaging are reassuring. Please do see your family doctor for changes in your blood pressure medication. We did give you a labetalol, a beta-yodit here. Return if worse if any questions or concerns. Please do continue monitoring your blood pressure measurements at home as instructed by your family doctor. You will need to contact your family doctor office for restarting the Holter monitoring device. At this time continue home medications. Prescriptions: No Action clonidine HCl 0.1 mg Tablet 0.1 mg PO BID Qty: 60 2RF atorvastatin 20 mg Tablet 80 mg PO BEDTIME Qty: 30 2RF aspirin 81 mg Tablet,Delayed Release (Dr/Ec) 81 mg PO DAILY Qty: 100 0RF amlodipine 10 mg tablet 10 mg PO DAILY Qty: 30 2RF Referrals: Minna Murdock DO [Primary Care Provider, Family Practice] Stand Alone Forms: Patient Portal/API
[2025-03-03 07:12] LABS: Troponin I < 0.012 ng/mL (0.01-0.034)
--- NOTE | 2025-03-03 07:24 | DI.MRI.S_ITS ---
PROCEDURE: MR HEAD/BRAIN WO CON INDICATIONS: Left arm numbness tingling. History of stroke TECHNIQUE: Noncontrast axial T1 spin echo, axial T2 fast spin echo, sagittal and axial FLAIR, coronal T2 fast spin echo, axial gradient echo, axial diffusion and ADC through the brain. COMPARISON: [facility], MR, MR HEAD/BRAIN WO CON, 02/08/2025, 11:57. FINDINGS: Image quality: Excellent. CSF Spaces: Basal cisterns are patent. No extra-axial fluid collections. Ventricles are normal in size and shape. Brain: No intracranial masses or hemorrhage. Perez/white matter interface is normal. Brainstem appears normal. Diffusion-weighted images demonstrate no acute infarct. No chronic ischemic insults. Normal intravascular flow voids are present. Skull and face: Calvarium has normal marrow signal. Orbits appear normal. Sinuses: Sinuses and mastoids are clear. IMPRESSION: No acute or subacute infarct. No acute intracranial abnormalities. Dictated by: Junaid Corley M.D. on 03/03/2025 at 8:44 Approved by: Junaid Corley M.D. on 03/03/2025 at 8:46
== END 2025-03-03 09:27 | disposition home or self-care (01) ==
PROVIDERS: Emergency Medicine; Emergency Provider Emergency Medicine; PCP Family Medicine
DX: R20.2 Paresthesia of skin (principal); I10 Essential (primary) hypertension; R07.9 Chest pain, unspecified
CPT/HCPCS: 70450; 70496; 70498; 70551; 71045; 80053; 82550; 83690; 84484; 85025; 93005; 96361; 96374; 99284; Q9967

== ENCOUNTER → 2025-03-07 09:16 | Outpatient (CLI) | payer BC, OTHER, SELFPAY ==
[2025-02-07 09:30] VITALS: BMI 42.0
[2025-03-07 10:24] LABS: Hemoglobin A1C% w Est Avg Glu 5.3 % (4.0-6.0)
[2025-03-07 10:30] LABS: Alanine Aminotransferase 79 IU/L (<50); Albumin 4.6 g/dL (3.5-5.0); Albumin Globulin Ratio 1.8 (1.0-2.8); Alkaline Phosphatase 66 U/L (38-126); Aspartate Aminotransferase 47 IU/L (17-59); BUN Creatinine Ratio 24.7 (6-22); Bilirubin Total 0.9 mg/dL (0.2-1.3); Blood Urea Nitrogen 24 mg/dL (9-20); Calcium 9.4 mg/dL (8.4-10.2); Carbon Dioxide 24 mmol/L (22-32); Chloride 106 mmol/L (98-107); Cholesterol 173 mg/dL (140-199); Estimated Glomerular Filt Rate > 60 mL/min (>60); Globulin 2.5 g/dL (1.7-4.1); Glucose 116 mg/dL (70-99); HDL Cholesterol 42 mg/dL (40-60); HEMOLYSIS < 15 (0-50); LDL Cholesterol Calculated 106 mg/dL (<100); Potassium 4.6 mmol/L (3.4-5.1); Sodium 139 mmol/L (137-145); Total Protein 7.1 g/dL (6.3-8.2); Triglycerides 123 mg/dL (35-150)
[2025-03-07 11:05] LABS: TSH w/ Reflex to FT4 2.44 uIU/mL (0.47-4.68)
== END ==
PROVIDERS: PCP Family Medicine; Referring Provider Family Medicine; Visit Provider Family Medicine
DX: Z13.1 Encounter for screening for diabetes mellitus (principal); Z13.220 Encounter for screening for lipoid disorders; I10 Essential (primary) hypertension; R73.09 Other abnormal glucose; Z86.73 Personal history of transient ischemic attack (TIA), and cerebral infarction without residual deficits
CPT/HCPCS: 36415; 80053; 80061; 83036; 84443

== ENCOUNTER → 2025-06-05 09:44 | Outpatient (CLI) | payer BC, OTHER, SELFPAY ==
[2025-02-07 09:30] VITALS: BMI 42.0
== END ==
LOC: CAR 09:45
PROVIDERS: PCP Family Medicine; Referring Provider Family Medicine; Visit Provider Family Medicine
DX: I10 Essential (primary) hypertension (principal); I63.9 Cerebral infarction, unspecified; Z86.73 Personal history of transient ischemic attack (TIA), and cerebral infarction without residual deficits
CPT/HCPCS: 93242